=== PATIENT | male | born 1965 | race Caucasian/White ===

== ENCOUNTER 2023-09-09 11:40 | Emergency (ER) | payer MEDICAID ==
[~2023-09-09] VITALS: Ht 167.6 cm; Wt 70.0 kg
[~2023-09-09 11:40] MED LIST: AMLO10TA80 MT; HYDR-4135 PO
[2023-09-09 11:45] VITALS: BP 192/96; PULSE 87; RESP 16; O2SAT 99
[2023-09-09] MEDS ORDERED: ACETAMINOPHEN 325MG TABLET PO ONE (12:45)
[2023-09-09] MEDS ORDERED: ACETAMINOPHEN 325MG TABLET PO NR (16:30)
[2023-09-09 16:45] VITALS: TEMP 98.8
== END 2023-09-09 16:47 | disposition home or self-care (01) ==
LOC: ER 11:40
DX: S09.90XA Unspecified injury of head, initial encounter (principal); R10.9 Unspecified abdominal pain; E11.9 Type 2 diabetes mellitus without complications; I10 Essential (primary) hypertension; V03.99XA Pedestrian with other conveyance injured in collision with car, pick-up truck or van, unspecified whether traffic or nontraffic accident, initial encounter; Y93.89 Activity, other specified; Y92.89 Other specified places as the place of occurrence of the external cause; Y99.8 Other external cause status
CPT/HCPCS: 71250; 74176; 99291